=== PATIENT | male | born 1970 ===

== ENCOUNTER → 2017-02-01 | Outpatient (CLI) | payer BC | END | disposition home or self-care (01) | LOC: EDSTATUS 12:00 → YERINGTON 13:00 | PROVIDERS: ATTEND Internal Medicine Cardiovascular Disease | DX: I51.7 Cardiomegaly (principal); I08.1 Rheumatic disorders of both mitral and tricuspid valves; I37.1 Nonrheumatic pulmonary valve insufficiency | CPT/HCPCS: 93306 ==